=== PATIENT | female | born 1980 | race Caucasian/White ===

== ENCOUNTER 2019-03-23 19:06 | Emergency (ER) | payer OTHER ==
[~2019-03-23] VITALS: Ht 157.5 cm; Wt 56.7 kg
[~2019-03-23 19:06] MED LIST: AMOXICILLIN 50500 M1 PO; FIORICET 50-321 EACH PO; IBUPROFEN 600600 M1 PO; IBUPROFEN 800800 MG PO; KEFLEX500 MG PO; MOTION RELIEF25 MG PO; NOHOMEMEDICATIONS; ROBAXIN500 MG PO; TRAMADOL 50 MG50 MG PO; ULTRAM 50MG TAB50 MG PO; VICODIN 5-5001 EACH PO
[2019-03-23] MEDS ORDERED: XANAX 0.5 MG0.5 MG PO (19:27)
[2019-03-23 20:02] LABS: URINE BLOOD NEGATIVE (Negative); URINE CLARITY CLEAR; URINE COLOR YELLOW; URINE GLUCOSE-RANDOM TRACE (Negative); URINE KETONES NEGATIVE (Negative); URINE LEUKOCYTES-REFLEX NEGATIVE (Negative); URINE NITRITE-REFLEX NEGATIVE (Negative); URINE PROTEIN TRACE (Negative); URINE SPECIFIC GRAVITY >= 1.030 (1.005-1.030)
[2019-03-23 20:09] LABS: ABSOLUTE BASOPHILS 0.1 thou/uL (0.0-0.2); ABSOLUTE EOSINOPHILS 0.2 thou/uL (0.0-0.7); ABSOLUTE LYMPHOCYTES 2.1 thou/uL (0.8-5.3); ABSOLUTE MONOCYTES 0.8 thou/uL (0.0-1.2); ABSOLUTE NEUTROPHILS 10.8 thou/uL (1.6-8.1); BASOPHILS 0.7 %; EOSINOPHILS 1.1 %; HEMATOCRIT 41.8 % (37.0-47.0); HEMOGLOBIN 14.7 gm/dL (12.0-15.0); LYMPHOCYTES 15.3 %; MCHC 35.1 g/dL (28.0-37.0); MCV 85.5 fL (80.0-100.0); MONOCYTES 5.6 %; MPV 8.4 fl. (7.2-11.1); NUCLEATED RBCS 0 /100WBC; PLATELET COUNT* 381 thou/uL (150-400); POLYS 77.3 %; RBC 4.89 mil/uL (4.20-5.00); RDW-CV 13.3 % (10.5-14.5)
[2019-03-23 20:13] LABS: ICTOTEST (BILI CONFIRMATORY) Negative (Negative); URINE BILIRUBIN 2+ (Negative)
[2019-03-23 20:18] LABS: CALCIUM 9.5 mg/dL (8.5-10.1); CREATININE 0.9 mg/dL (0.6-1.3); POTASSIUM 3.8 mmol/L (3.5-5.1)
[2019-03-23 20:21] LABS: ALBUMIN 4.5 g/dL (3.4-5.0); TOTAL BILIRUBIN 0.8 mg/dL (<0.1-1.0); TOTAL PROTEIN 9.4 g/dL (6.4-8.2)
[2019-03-23 20:22] LABS: AMP/METHAMP POSITIVE (Negative); BARBITURATES Negative (Negative); BENZODIAZEPINES Negative (Negative); COCAINE Negative (Negative); METHADONE Negative (Negative); OPIATES Negative (Negative); PCP Negative (Negative); THC Negative (Negative)
[2019-03-23 20:58] LABS: INFLUENZA A ANTIGEN Negative (Negative); INFLUENZA B ANTIGEN Negative (Negative)
[2019-03-23] MEDS ORDERED: CIPRODEX OTIC7.5 ML OTIC (21:32)
[2019-03-23] MEDS ORDERED: NABUMETONE 750750 M1 PO (21:32)
[2019-03-23] MEDS ORDERED: ZANAFLEX4 MG PO (21:32)
[2019-03-23] MEDS ORDERED: AUGMENTIN 875-1 EACH PO (22:42)
[2019-03-23 22:55] VITALS: BP 120/81
--- NOTE | 2019-03-24 13:57 | EKG ---
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1980 Requested By: Polly Lee Order Number: [id number] MD: Ramez Blanc Measurements Intervals [place] Rate: 79 P: 23 VA: 137 QRS: 89 QRSD: 99 T: 47 QT: 361 QTc: 414 Interpretive Statements Sinus rhythm Anteroseptal infarct, age indeterminate possible Compared to ECG 02/22/2012 23:18:07 Myocardial infarct finding now present Sinus arrhythmia no longer present Electronically Signed On 03-24-2019 9:59:35 [place] [employer] by Ramez Blanc [email or web address] <ELECTRONICALLY SIGNED> By: Ramez Blanc MD, [facility] 03/24/19 [id number] Ramez Blanc MD, [facility] /EPI
== END 2019-03-23 23:00 | disposition home or self-care (01) ==
LOC: M.ERS 19:06
PROVIDERS: Nurse Practitioner Family
DX: S20.212A Contusion of left front wall of thorax, initial encounter (principal); S60.222A Contusion of left hand, initial encounter; H60.92 Unspecified otitis externa, left ear; J03.90 Acute tonsillitis, unspecified; F15.10 Other stimulant abuse, uncomplicated; X58.XXXA Exposure to other specified factors, initial encounter; Y93.89 Activity, other specified; Y92.89 Other specified places as the place of occurrence of the external cause; Y99.8 Other external cause status